=== PATIENT | male | born 1985 | race Caucasian/White ===

== ENCOUNTER 2022-02-20 10:13 | Emergency (ER) | payer MEDICARE, MEDICAID ==
[~2022-02-20] VITALS: Ht 177.8 cm; Wt 100.0 kg
[2022-02-20 10:28] VITALS: BP 163/98
[2022-02-20] MEDS ORDERED: ACETAMINOPHEN 500MG TABLET PO ONE (12:00)
[2022-02-20] MEDS ORDERED: PANTOPRAZOLE 40MG DR TABLET PO ONE (12:00)
[2022-02-20 12:09] LABS: BASOPHILS % 0.4 % (0.0-2.0); EOSINOPHILS % 0.4 % (0.0-5.0); HEMATOCRIT. 40.7 % (42.0-52.0); HEMOGLOBIN. 14.1 g/dL (14.0-18.0); LYMPHOCYTES % 15.1 % (20.0-50.0); MEAN CORPUSCULAR HEMOGLOBIN 31.7 pg (28.0-32.0); MEAN CORPUSCULAR VOLUME 91.4 fL (80.0-94.0); MEAN PLATELET VOLUME 8.2 fl (7.4-10.4); MONOCYTES % 6.4 % (2.0-8.0); NEUTROPHILS % 77.7 % (40.0-76.0); PLATELET 279 x1000/uL (130-400); RED BLOOD CELL COUNT 4.45 mill/uL (4.7-6.1); RED CELL DISTRIBUTION WIDTH 12.9 % (11.6-14.6)
[2022-02-20 12:26] LABS: CHLORIDE 110 mEq/L (98-107)
[2022-02-20] MEDS ORDERED: CYCL10TA21 MT (12:35)
[2022-02-20] MEDS ORDERED: PROT40 MT (12:35)
== END 2022-02-20 12:58 | disposition home or self-care (01) ==
LOC: ER 10:13
DX: K92.1 Melena (principal); K59.00 Constipation, unspecified; G89.29 Other chronic pain; M54.59 Other low back pain; Z98.890 Other specified postprocedural states
CPT/HCPCS: 36415; 80053; 85025; 99283